=== PATIENT | female | born 1955 | race Hispanic/Latino ===

== ENCOUNTER 2018-03-02 06:36 | Emergency (ER) | payer OTHER ==
[2018-03-02 08:11] LABS: #Basophils 0.1 thou/uL (0.0-0.2); #Eosinphils 0.1 thou/uL (0.0-0.7); #Lymphocytes 4.4 thou/uL (1.20-3.40); #Monocytes 0.7 thou/uL (0.11-0.59); #Neutrophils 9.2 thou/uL (1.40-6.50); %Basophils 0.6 % (0.0-1.0); %Eosinophils 0.4 % (0.0-10.0); %Lymphocytes 30.4 % (21.0-51.0); %Monocytes 5.1 % (0.0-10.0); %Neutrophils 63.5 % (42.0-75.0); Hemoglobin 14.1 g/dL (12.0-16.0); Mean Corpuscular HGB CONC 33.6 g/dL (32.0-36.0); Mean Corpuscular Volume 89.4 fL (78.0-98.0); Mean Platelet Volume 6.2 fL (7.4-10.4); Platelet Count 454 thou/uL (130-400); RBC Distribution Width 11.9 % (11.5-14.5); Red Blood Cell (RBC) Count 4.69 mill/uL (4.20-5.40); White Blood Cell (WBC) Count 14.5 thou/uL (4.8-10.8)
[2018-03-02 08:41] LABS: Bilirubin Negative (Negative); Blood, Urine Negative (Negative); Clarity CLOUDY (Clear); Glucose, Urine (Dipstick) Negative (Negative); Leukocyte Small (Negative); Nitrite Positive (Negative); Protein, Urine (Dipstick) Negative (Neg-Trace); Specific Gravity, Urine 1.019 (1.002-1.036)
[2018-03-02 08:44] LABS: Bacteria/HPF 4+ HPF (None Seen); Hyaline Casts/LPF 0-3 HYALINE CAST LPF (0-3 Hyaline); Pathc Cast-AUWi Flag 0.29 (0-2.49); RBC/HPF 0-3 HPF (0-3)
[2018-03-02 08:48] LABS: ALT (SGPT) 40 U/L (8-55); AST (SGOT) 16 U/L (5-34); Albumin 4.5 g/dL (3.4-4.8); Alkaline Phosphatase 69 U/L (40-150); Anion Gap 13 mmol/L (10-20); BUN (Urea Nitrogen) 14 mg/dL (9.8-20.1); Bilirubin, Total 0.7 mg/dL (0.2-1.2); Calc. Creatinine Clearance 0 mL/min (70-130); Calcium 9.4 mg/dL (7.8-10.44); Carbon Dioxide 26 mmol/L (23-31); Chloride 100 mmol/L (98-107); Estimated GFR-MDRD 77; Glucose 130 mg/dL (80-115); Magnesium 2.1 mg/dL (1.6-2.6); Protein, Total 7.5 g/dL (6.0-8.3); Sodium 135 mmol/L (136-145)
[2018-03-02 08:53] LABS: Troponin I Less than 0.010 ng/mL (< 0.028)
--- NOTE | 2018-03-02 09:54 | RAD ---
RADIOGRAPH CHEST 2 VIEWS: HISTORY: A 62-year-old female with chills and syncope. FINDINGS: There is no air space density, pulmonary edema, pleural effusion, pneumothorax, or cardiomegaly. IMPRESSION: No acute cardiopulmonary findings. lavell [] POS: KATELYN
[2018-03-02] MEDS ORDERED: cefTRIAXone\\ROCEPHIN 1 GM VIAL ONE (10:01)
== END 2018-03-02 11:09 | disposition home or self-care (01) ==
LOC: ERS 06:36
DX: E86.0 Dehydration (principal); N39.0 Urinary tract infection, site not specified; E10.9 Type 1 diabetes mellitus without complications; I10 Essential (primary) hypertension; Z79.84 Long term (current) use of oral hypoglycemic drugs; Z79.899 Other long term (current) drug therapy
CPT/HCPCS: 36416; 71046; 80053; 81003; 81015; 83735; 83880; 84484; 85025; 87077; 87086; 87186; 93005; 96365; J0696

== ENCOUNTER 2018-05-22 10:12 | Inpatient (IN) | payer OTHER ==
[2018-05-22 11:45] LABS: #Basophils 0.1 thou/uL (0.0-0.2); #Eosinphils 0.1 thou/uL (0.0-0.7); #Monocytes 0.4 thou/uL (0.11-0.59); #Neutrophils 3.4 thou/uL (1.40-6.50); %Basophils 1.1 % (0.0-1.0); %Eosinophils 1.8 % (0.0-10.0); %Lymphocytes 42.8 % (21.0-51.0); %Monocytes 5.9 % (0.0-10.0); %Neutrophils 48.4 % (42.0-75.0); Hemoglobin 13.9 g/dL (12.0-16.0); Mean Corpuscular HGB CONC 31.9 g/dL (32.0-36.0); Mean Corpuscular Hemoglobin 29.1 pg (27.0-31.0); Mean Corpuscular Volume 91.3 fL (78.0-98.0); Mean Platelet Volume 7.1 fL (7.4-10.4); Platelet Count 402 thou/uL (130-400); RBC Distribution Width 12.6 % (11.5-14.5); Red Blood Cell (RBC) Count 4.76 mill/uL (4.20-5.40)
[2018-05-22 11:55] LABS: Bilirubin Negative (Negative); Blood, Urine Negative (Negative); Clarity CLEAR (Clear); Glucose, Urine (Dipstick) Negative (Negative); Leukocyte Trace (Negative); Nitrite Positive (Negative); Protein, Urine (Dipstick) Negative (Neg-Trace); Specific Gravity, Urine 1.006 (1.002-1.036); Urobilinogen 0.2 mg/dL (0.2-1.0); pH, Urine 6.5 (5.0-9.0)
[2018-05-22 11:57] LABS: Bacteria/HPF 4+ HPF (None Seen); Hyaline Casts/LPF 0-3 HYALINE CAST LPF (0-3 Hyaline); RBC/HPF 0-3 HPF (0-3); Squamous Epithelial None Seen HPF (0-3); WBC/HPF 0-3 HPF (0-3)
[2018-05-22 12:06] LABS: ALT (SGPT) 29 U/L (8-55); AST (SGOT) 20 U/L (5-34); Albumin 4.5 g/dL (3.4-4.8); Alkaline Phosphatase 63 U/L (40-150); Anion Gap 12 mmol/L (10-20); BUN (Urea Nitrogen) 10 mg/dL (9.8-20.1); Bilirubin, Total 0.9 mg/dL (0.2-1.2); Calc. Creatinine Clearance 0 mL/min (70-130); Calcium 9.3 mg/dL (7.8-10.44); Carbon Dioxide 28 mmol/L (23-31); Chloride 104 mmol/L (98-107); Estimated GFR-MDRD 83; Glucose 137 mg/dL (80-115); Lipase 11 U/L (8-78); Potassium 4.3 mmol/L (3.5-5.1); Protein, Total 7.5 g/dL (6.0-8.3); Sodium 140 mmol/L (136-145)
--- NOTE | 2018-05-22 13:29 | ULT ---
GALLBLADDER ULTRASOUND: HISTORY: Right upper quadrant pain. COMPARISON: 12/15/2015 TECHNIQUE: Utilizing a Multi-Hertz transducer, sonographic imaging of the right upper quadrant was performed in the longitudinal and transverse planes. FINDINGS: Increased echogenicity of the liver is presumed to be due to hepatic steatosis or hepatocellular dise ase. Subsequently, limited evaluation for hepatic masses and intrahepatic biliary dilatation. The senior training specialist reports possible sludge and a noncalcifying sludge ball versus cholelithiasis in the lumen of the gallbladder, best appreciated on the left lateral decubitus images. Gallbladder wall th ickness is at the upper limits of normal. No pericholecystic fluid. However, the senior training specialist report s a positive Mahoney sign. Limited evaluation of the pancreas. Common bile duct diameter is 0.3 cm. The right kidney has a normal cortical echotexture. No hydronephrosis. The right kidney measures 4. 8 x 5.6 x 10 cm. IMPRESSION: Sonographic evidence of possible cholecystitis. There does appear to be a nonshadowing echogenic foc us in the lumen of the gallbladder, which may represent a nonshadowing stone versus sludge ball. Gal lbladder wall thickness is at the upper limits of normal. The senior training specialist reports a positive Mahoney sign. Further evaluation with HIDA scan is recommended. POS: KATELYN
--- NOTE | 2018-05-22 15:27 | PDOC.FPRHP ---
- History of Present Illness Chief Complaint: RUQ pain History of Present Illness: 62 yo F with DM1 and HTN presents for 2 wks of RUQ abdominal pain which acutely worsened on Monday. She was sent to ED from her clinic appointment with her PCP today. Pain is sharp 7/10, constant, radiates around right side. Pain is worsened with eating, especially milk. She hasn't eaten anything since yesterday morning. Associated with bloating, diarrhea, nausea. Patient has chills but no fever. In the ED, RUQ US showed gall bladder wall thickening, sludge ball vs cholelithiasis, and +Mahoney sign. ED Course: RUQ US, possible cholecystitis with sludge No medications - Allergies/Adverse Reactions Allergies Allergy/AdvReac Type Severity Reaction Status Date / Time codeine phosphate Allergy Rash Verified 05/22/18 16:56 [From Tylenol-Codeine] - Home Medications Medication Instructions Recorded Confirmed Type Cyclobenzaprine [Flexeril] 10 mg PO HS 12/15/15 05/22/18 History Esomeprazole Magnesium [NexIUM] 40 mg PO DAILY 12/15/15 05/22/18 History Lisinopril [Zestril] 40 mg PO DAILY 12/15/15 05/22/18 History metFORMIN HCl 1,000 mg PO BID-WM 12/15/15 05/22/18 History Aspirin [Aspir-Low] 81 mg PO DAILY 05/22/18 05/22/18 History Cholecalciferol (Vitamin D3) 1,000 unit PO DAILY 05/22/18 05/22/18 History [Vitamin D3] Atorvastatin Calcium [Lipitor] 20 mg PO HS #14 tab 05/23/18 Rx Gabapentin [Neurontin] 300 mg PO BID 05/23/18 05/23/18 History Ibuprofen [Motrin] 800 mg PO Q8H #21 tab 05/23/18 Rx Insulin Glargine [Lantus Vial] 10 units SC HS #0 vial 05/23/18 Rx Insulin Glargine [Lantus Vial] 10 units SC QAM #0 vial 05/23/18 Rx traMADol HCl [Tramadol HCl] 1 - 2 tab PO Q6HR PRN #30 tablet 05/23/18 Rx - History PMHx: HTN, DM1 PSHx: umbical hernia, appendectomy, c/sx2 FHx: non-contributory Social: no smoking, alcohol, or drugs - Review of Systems General: reports: fever/chills (No fever, +chills), weight/appetite/sleep changes (decreased appetite), night sweats, fatigue Eyes: denies: eye pain, vision changes ENT: denies: nasal congestion, rhinorrhea Respiratory: denies: cough, congestion, shortness of breath Cardiovascular: denies: chest pain, palpitation Gastrointestinal: reports: nausea, diarrhea, abdominal pain. denies: vomiting, constipation, GI bleeding Genitourinary: denies: incontinence, dysuria Skin: denies: rashes, jaundice Musculoskeletal: denies: pain Neurological: denies: numbness, weakness Psychological: denies: anxiety, depression - Vital signs BP: 113/68 HR: 53 RR: 18 Tmax: 97.8 Pox: 97% on RA Wt: 86.19kg - Physical Exam Constitutional: NAD, awake, alert and oriented HEENT: normocephalic and atraumatic, PERRLA, EOMI, conjunctiva clear, grossly normal hearing, MMM, oropharynx clear Neck: supple -Neck: +LAD Heart: RRR, normal S1/S2, no murmurs/rubs/gallops, no edema Lungs: CTAB, no respiratory distress, good air movement, no wheezing Abdomen: soft, bowel sounds present -Abdomen: TTP on RUQ and LLQ. Some guarding present, no rebound. + Mahoney sign Skin: no rash/lesions Heme/Lymphatic: no unusual bruising or bleeding Psychiatric: normal mood and affect, good judgment and insight, intact recent and remote memory FMR H&P: Results - Labs Result Diagrams: 05/23/18 04:31 05/23/18 04:31 Lab results: WBC 7.0 thou/uL (4.8-10.8) 05/22/18 11:32 Hgb 13.9 g/dL (12.0-16.0) 05/22/18 11:32 Hct 43.5 % (36.0-47.0) 05/22/18 11:32 MCV 91.3 fL (78.0-98.0) 05/22/18 11:32 Plt Count 402 thou/uL (130-400) H 05/22/18 11:32 Neutrophils % 48.4 % (42.0-75.0) 05/22/18 11:32 Sodium 140 mmol/L (136-145) 05/22/18 11:32 Potassium 4.3 mmol/L (3.5-5.1) 05/22/18 11:32 Chloride 104 mmol/L (98-107) 05/22/18 11:32 Carbon Dioxide 28 mmol/L (23-31) 05/22/18 11:32 BUN 10 mg/dL (9.8-20.1) 05/22/18 11:32 Creatinine 0.71 mg/dL (0.6-1.1) 05/22/18 11:32 Glucose 137 mg/dL (80-115) H 05/22/18 11:32 Calcium 9.3 mg/dL (7.8-10.44) 05/22/18 11:32 Total Bilirubin 0.9 mg/dL (0.2-1.2) 05/22/18 11:32 AST 20 U/L (5-34) 05/22/18 11:32 ALT 29 U/L (8-55) 05/22/18 11:32 Alkaline Phosphatase 63 U/L (40-150) 05/22/18 11:32 Serum Total Protein 7.5 g/dL (6.0-8.3) 05/22/18 11:32 Albumin 4.5 g/dL (3.4-4.8) 05/22/18 11:32 Lipase 11 U/L (8-78) 05/22/18 11:32 Urine Ketones Negative mg/dL (Negative) 05/22/18 11:36 Urine Blood Negative (Negative) 05/22/18 11:36 Urine Nitrite Positive (Negative) H 05/22/18 11:36 Ur Leukocyte Esterase Trace (Negative) H 05/22/18 11:36 Urine RBC 0-3 HPF (0-3) 05/22/18 11:36 Urine WBC 0-3 HPF (0-3) 05/22/18 11:36 Ur Squamous Epith Cells None Seen HPF (0-3) 05/22/18 11:36 Urine Bacteria 4+ HPF (None Seen) H 05/22/18 11:36 FMR H&P: A/P - Problem List (1) RUQ pain Status: Acute Code(s): R10.11 - RIGHT UPPER QUADRANT PAIN (2) Diabetes mellitus type II, uncontrolled Status: Chronic Code(s): E11.65 - TYPE 2 DIABETES MELLITUS WITH HYPERGLYCEMIA (3) GERD (gastroesophageal reflux disease) Status: Chronic Code(s): K21.9 - GASTRO-ESOPHAGEAL REFLUX DISEASE WITHOUT ESOPHAGITIS (4) Hypertension Status: Chronic Code(s): I10 - ESSENTIAL (PRIMARY) HYPERTENSION Qualifiers: Hypertension type: essential hypertension Qualified Code(s): I10 - Essential (primary) hypertension - Plan 62 yo F with PMH of DM and HTN presents with possible cholecystitis. #Concern for cholecystitis - RUQ pain, +[place]. Lipase WNL, WBC wnl, afebrile. VSS. - RUQ US showed gallbladder wall thickening at limit of normal, sludge ball vs cholelithiasis - Pain control with morphine IV - Zofran for nausea - CXR and EKG for possible surgery - NPO for possible surgery - Consult Dr. Fu, General Surgery, appreciate recommendations - IV LR @ 125 #DM -Start home metformin -Start home lantus 10 units BID -Mod SSI #GERD -continue #HTN -continue home lisinopril and ASA #Neuropathic pain -continue home gabapentin #HLD -Home dose atorvastatin unknown -start Atorvastatin 20 mg GI ppx: famotidine DVT ppx: lovenox Code status: full FMR H&P: Upper Level - Pertinent history 62 yo F w/ PMH including DM2, HTN, and HLD w/ RUQ pain going on for 2 weeks, worse the last 5 days. Sharp RUQ pain worse with eating, pain radiates to the back. Nothing seems to make it better. Never had anything like this in the past. She has not tried any medicine but she has not had anything to eat since yesterday morning because eating hurts. No fevers. Has had chills and sweats. Had had nausea, diarrhea x5 yesterday. No blood in the stools. - Pertinent findings General - NAD Eyes - PERRLA, EOM intact ENT - Moist oral mucosa, pale Cardiovascular - RRR no m/r/g Lungs - Clear to auscltation, no use of acessory muscles, no crackles or wheezes. Skin - No rashes, skin warm and dry, no erythematous areas Abdomen - Normal bowel sounds, abdomen soft, mahoney +, no rebound or guarding Extremeties - No edema, cyanosis or clubbing Musculo Skeletal - 5/5 strength, normal range of motion Neurological Alert and oriented x 3, CN 2-12 grossly intact. - Plan Date/Time: 05/22/18 1527 I, Johnathon Bennett MD, have evaluated this patient and agree with findings/plan as outlined by sports internship resident. Pertinent changes/additions are listed here. # Suspected Acalculous cholecystitis - RUQ US shows sludge, gall bladder wall thickening - normal WBC, afebrile, transaminases WNL - Mahoney's positive, NPO 2/2 pain worse with food - consulted Dr. Fu, appreciate recs, anticipate cholecystecomty # DM2 - lantus 10U qhs per clinic note - metformin 1000mg BID - SSI # HTN - home meds # HLD - home atorvastatin Fluids: LR 125 ml/hr Diet: NPO PPx: lovenox starting tomorrow AM, Pepcid, SCDs Dispo: 1-2 days Attending Addendum - Attending Addendum Date/Time: 05/24/18 1530 I personally evaluated the patient and discussed the management with Dr. Bennett on 05/22/18. I agree with the History, Examination, Assessment and Plan documented above with any addition or exceptions noted below. 62 y.o. LAF with h/o DM2, HTN with 1 week of worsening epigastric and RUQ pain that acutely worsened overnight. Associated with meals. +nausea, radiation to back. GBUS c/w cholecystitis/cholelithiasis PE: +Mahoney's. Labs without evidence of pancreatitis. General Surgery consult. Treat for acute cholecystitis.
[2018-05-22] MEDS ORDERED: Gabapentin 300 MG CAP PO PRN (16:16)
[2018-05-22] MEDS ORDERED: Ondansetron HCl/PF 4 MG/2 ML Vial ONE (16:28)
[2018-05-22] MEDS ORDERED: ePHEDrine/0.9% NaCl/PF SYRINGE 50 mg/10 ml ONE (16:28)
[2018-05-22] MEDS ORDERED: Ketorolac Tromethamine 30 MG/ML VIAL ONE (16:28)
[2018-05-22] MEDS ORDERED: Lidocaine 1% PF 5 ML VIAL ONE (16:28)
[2018-05-22] MEDS ORDERED: PROPOFOL 200 MG/20 ML VIAL ONE (16:28)
[2018-05-22] MEDS ORDERED: Glycopyrrolate 0.2 MG/ML 5 ML SYRINGE ONE (16:28)
[2018-05-22] MEDS ORDERED: Dexamethasone 20 MG/5 ML VIAL ONE (16:28)
--- NOTE | 2018-05-22 16:35 | RAD ---
FRONTAL VIEW CHEST: Indication: Pre-operative evaluation. FINDINGS: Lungs are clear. There is no air beneath the hemidiaphragms. Cardiac silhouette is accentuated with p ortable technique. Mild degenrative change is seen at the AC joints. IMPRESSION: No focal consolidation. POS: H
[2018-05-22] MEDS ORDERED: Bupivacaine/Epinephrine 0.25% 30 ML VIAL ONE (16:44)
[2018-05-22] MEDS ORDERED: HYDROmorphone 2 MG/ML VIAL ONE (16:57)
[2018-05-22] MEDS ORDERED: Fentanyl 100 MCG/2 ML VIAL ONE ×2 (16:57→19:37)
[2018-05-22] MEDS ORDERED: CEFAZOLIN/Water 2 GM/20 ML SYRINGE ONE (17:34)
[2018-05-22] MEDS ORDERED: CEFAZOLIN 1 GM VIAL ONE (17:34)
[2018-05-22] MEDS ORDERED: traMADol HCl 50 MG TAB PO PRN ×2 (19:03)
[2018-05-22] MEDS ORDERED: Ondansetron HCl/PF 4 MG/2 ML Vial IVP PRN ×2 (19:06→20:12)
[2018-05-22] MEDS ORDERED: Promethazine HCl 25 MG/ML VIAL ONE (19:10)
[2018-05-22] MEDS ORDERED: Dextrose 5% in Water 1,000 ML IV PRN (20:12)
[2018-05-22] MEDS ORDERED: Dextrose 50% Abboject 50 ML SYRINGE SLOW IVP PRN (20:12)
[2018-05-22] MEDS: metFORMIN 500 MG TAB PO SCH (20:30)
[2018-05-22] MEDS ORDERED: Insulin Glargine 10 UNITS in Pre-Filled Syringe 1 EACH SC SCH (21:00)
[2018-05-22] MEDS ORDERED: Atorvastatin Calcium 20 MG TAB PO SCH (21:00)
--- NOTE | 2018-05-22 21:41 | CON ---
DATE OF CONSULTATION: 05/22/2018 HISTORY OF PRESENT ILLNESS: Ms. Zuniga is a 62-year-old morbidly obese woman who presente d to the Emergency Department today complaining of 2-week history of right upper quadrant postprandia l abdominal pain. The pain is described as sharp, without radiation. Pain is exacerbated by eating and has become progressively worse over the last 4 days. She has been anorexic for fear of exacerbating the abdominal pain. The pain currently is associated with multiple episodes of nausea, but no emesis. She reports some diarrhea and abdominal bloating, b ut no frequent flatulence. She admits to some chills, but no fevers. PAST MEDICAL HISTORY: Pertinent for essential hypertension, morbid obesity, type 2 diabetes mellitus , and gastroesophageal reflux disease. PAST SURGICAL HISTORY: She reports 2 previous C-sections and umbilical herniorrhaphy as well as appe ndectomy. SOCIAL HISTORY: She is a . She denies any cigarette smoking, ethanol or illicit drug abuse. FAMILY HISTORY: She denies any family history of diabetes mellitus, hypertension, heart disease. Fa rosenda from complications of tobacco related lung disease. PREHOSPITALIZATION MEDICATIONS: Lisinopril 40 mg p.o. daily, aspirin 81 mg p.o. daily, metformin 100 0 mg p.o. b.i.d., Nexium 40 mg p.o. daily, Humulin 70/30, she takes 60 units once q.a.m. and vitamin D3 one p.o. daily. ALLERGIES: Tylenol #3 which gives her hives. REVIEW OF SYSTEMS: A 10-point review of system is essentially unremarkable except for as stated in p ast medical history and chief complaint. PHYSICAL EXAMINATION: GENERAL: This reveals a 62-year-old obese woman who is otherwise coherent and interactive and appear s stated age. The patient is alert and oriented x3. She appears to be in moderate acute distress se condary to right upper quadrant abdominal pain. VITAL SIGNS: Currently includes blood pressure 118/75, pulse is 56, respiratory rate is 16, temperat ure is 98.3 degrees Fahrenheit. Oxygen saturation is 97% on room air. HEENT: Reveals normocephalic and atraumatic. Pupils are equal, round, and reactive to light and acc ommodation. Extraocular muscles are intact bilaterally. She has no sclerae icterus present. Oral m ucosa is pink and moist. No lesions are noted. NECK: Supple. No palpable lymphadenopathy or thyromegaly present. CARDIOVASCULAR: Reveals regular rate and rhythm, no murmurs or gallops auscultated. LUNGS: Clear to auscultation bilaterally. Her breathing is regular and unlabored. ABDOMEN: Soft and obese with right upper quadrant tenderness to palpation. She has a positive [place] y sign. Liver and spleen otherwise nonpalpable below costal margin. EXTREMITIES: Reveals 2+ radial and pedal pulses bilaterally. No ankle edema is present. NEUROLOGIC: Reveals no focal deficits present. PERTINENT LABORATORY DATA: Today includes a CBC with 7000 white blood cells, hemoglobin 13.9, hemato crit is 43.5, platelet count is 402,000. Metabolic profile: Sodium 140, potassium 4.3, chloride is 104, bicarbonate is 28, BUN 10, creatinine 0.71, glucose 137, total bilirubin is 0.9, AST and ALT nor mal at 20 and 29 respectively. Alkaline phosphatase is also normal at 63. Serum lipase is normal at 11. I personally reviewed the abdominal ultrasound, which is pertinent for gallbladder wall upper l imits of normal in thickness. There is no pericholecystic fluid. I did not see any acoustic shadowi ng to suggest stones. Common bile duct is normal for this patient's age at 4.6 mm in diameter. IMPRESSION: 1. Acute on chronic cholecystitis, likely acalculous. 2. History of type 2 diabetes mellitus. PLAN: Given this patient experienced similar symptoms 2 years previously and now with ongoing sympto ms over the last 2 weeks in the presence of longstanding diabetes mellitus, plan at this time is to p vidhi with a laparoscopic cholecystectomy. The above findings and recommendation has been discussed with the patient. I have advised the patient of the risk and benefits of the proposed surgery to in clude, but not limited to bleeding, infection, injury to bile duct or surrounding structures. This i nformation was given to the patient in the presence of her nurse. She indicates understanding of inf ormation given. I have answered her questions. Thank you again, Dr. Smith for allowing me the opportunity to participate in the care of this patien t.
[2018-05-22] MEDS: Famotidine/PF 20 mg/2ml Vial SLOW IVP SCH (21:51)
[2018-05-22] MEDS: Lactated Ringer's 1,000 ML IV SCH (21:52)
[2018-05-22 22:11] VITALS: BMI 35.9
--- NOTE | 2018-05-23 | OP ---
DATE OF OPERATION: 05/22/2018 PREOPERATIVE DIAGNOSES: Acute cholecystitis with cholelithiasis. POSTOPERATIVE DIAGNOSES: Acute cholecystitis with cholelithiasis. PROCEDURES PERFORMED: Laparoscopic cholecystectomy. SURGEON: Pio Fu D.O. ANESTHESIA: General endotracheal. ESTIMATED BLOOD LOSS: 5 mL. FLUIDS GIVEN: 1200 mL crystalloids. SPONGE AND INSTRUMENT COUNT: Certified as correct x2. COMPLICATIONS: None apparent at the time of operation. INDICATIONS FOR OPERATION: A 62-year-old obese woman presented with recurrent right upper quadrant a bdominal pain. Clinical and radiographic examination was consistent with acute cholecystitis with ch olelithiasis for which the patient was brought to the operating room for laparoscopic cholecystectomy . Findings are consistent with gallbladder in the usual anatomic location completely encased by omen fredy adhesions. DESCRIPTION OF OPERATION: Informed consent obtained from the patient who was brought to the operatin g room and placed in supine position. Following general anesthesia, abdomen is sterilely prepped and draped in usual fashion. The skin below the umbilicus was infiltrated with 0.25% Marcaine with epin ephrine. A small curvilinear infraumbilical incision is made using an 11 scalpel. Umbilical stalk w as grasped with Obinna's and elevated. Veress needle was inserted through the incision and placed in the peritoneal cavity through which the abdomen was insufflated with 3 liters of CO2 gas. Intraabdo buddy pressure was noted at 1 mmHg. Following the abdominal insufflation, Veress needle was removed and replaced with a 5 mm trocar introduced using the Visiport under laparoscopy. Laparoscopy confirm ed proper placement of the port, no injuries to underlying structures. Additional laparoscopy reveal s gallbladder in the usual anatomic location completely encased by omental adhesions. Under direct l aparoscopy, a 12 mm epigastric and two 5 mm right lateral subcostal ports were placed after the overl louisa skin was infiltrated with 0.25% Marcaine with epinephrine and appropriate incisions made. The p atient was placed in the reverse Trendelenburg position, rotated to her left. I introduced [place] dissector with cautery, using this to take down omental adhesions to expose the fundus of the gallbla dder, which was grasped with a Prestige grasper through the right lateral subcostal port. The fundus of the gallbladder was elevated cephalad. Omental adhesions were then completely taken down from th e remainder of the gallbladder with good hemostasis. A second Prestige grasper was applied at the Beckwith rtman's pouch which was retracted laterally. An anterior coursing cystic artery was dissected free f rom surrounding structures and divided between clips. Two clips were applied proximally and one clip at the junction of the cystic artery and gallbladder. Cystic duct was dissected free from surroundi ng structures and divided between clips in a similar fashion. The gallbladder surface removed from t he liver bed using cautery with good hemostasis. Gallbladder is delivered of the abdominal cavity us ing an EndoCatch. Operative site was inspected for good hemostasis. No bile stains present. All cl ips remain in place. Finding no other pathology, laparoscopy was terminated. Fascia of the epigastr ic port was closed using 0 Vicryl suture and Endo closure device under laparoscopy. Abdomen was desu fflated. All ports and instruments removed and accounted for. Skin incisions were closed using 4-0 Monocryl suture in subcuticular fashion. Dermabond was applied over the incisional closure. The pat ient tolerated the operation without any apparent complication and was returned to recovery room in a satisfactory condition.
[2018-05-23] MEDS: Lactated Ringer's 1,000 ML IV SCH ×2 (00:18→08:40)
[2018-05-23] MEDS: Acetaminophen 500 MG TAB PO SCH ×3 (00:18→11:37)
[2018-05-23] MEDS: Ketorolac Tromethamine 30 MG/ML VIAL IVP SCH ×2 (00:19→05:33)
[2018-05-23 04:59] LABS: #Lymphocytes 1.4 thou/uL (1.20-3.40); #Monocytes 0.2 thou/uL (0.11-0.59); #Neutrophils 7.7 thou/uL (1.40-6.50); %Basophils 0.1 % (0.0-1.0); %Eosinophils 0.1 % (0.0-10.0); %Lymphocytes 15.2 % (21.0-51.0); %Monocytes 1.7 % (0.0-10.0); %Neutrophils 82.9 % (42.0-75.0); Hemoglobin 13.1 g/dL (12.0-16.0); Mean Corpuscular HGB CONC 31.9 g/dL (32.0-36.0); Mean Corpuscular Hemoglobin 28.9 pg (27.0-31.0); Mean Corpuscular Volume 90.8 fL (78.0-98.0); Platelet Count 384 thou/uL (130-400); RBC Distribution Width 12.7 % (11.5-14.5); Red Blood Cell (RBC) Count 4.51 mill/uL (4.20-5.40); White Blood Cell (WBC) Count 9.3 thou/uL (4.8-10.8)
[2018-05-23 05:07] LABS: ALT (SGPT) 31 U/L (8-55); AST (SGOT) 25 U/L (5-34); Albumin 3.9 g/dL (3.4-4.8); Alkaline Phosphatase 56 U/L (40-150); Anion Gap 13 mmol/L (10-20); BUN (Urea Nitrogen) 9 mg/dL (9.8-20.1); Bilirubin, Total 0.7 mg/dL (0.2-1.2); Calc. Creatinine Clearance 94 mL/min (70-130); Calcium 8.8 mg/dL (7.8-10.44); Carbon Dioxide 23 mmol/L (23-31); Chloride 104 mmol/L (98-107); Estimated GFR-MDRD 69; Globulin 2.6 g/dL (2.4-3.5); Glucose 305 mg/dL (80-115); Potassium 4.3 mmol/L (3.5-5.1); Protein, Total 6.5 g/dL (6.0-8.3); Sodium 136 mmol/L (136-145)
[2018-05-23 05:08] LABS: ALT (SGPT) 30 U/L (8-55); AST (SGOT) 24 U/L (5-34); Albumin 3.9 g/dL (3.4-4.8); Alkaline Phosphatase 55 U/L (40-150); Bilirubin, Direct 0.2 mg/dL (0.1-0.3); Bilirubin, Total 0.7 mg/dL (0.2-1.2); Protein, Total 6.5 g/dL (6.0-8.3)
[2018-05-23] MEDS: HumaLOG 300 UNITS/3 ML VIAL SC PRN ×2 (05:58→11:37)
--- NOTE | 2018-05-23 06:03 | PDOC.FM ---
- Subjective Subjective: Pt feeling well this AM, ate crackers and jello last night, ordering breakfast this morning. Voiding well, no flatus yet. Pain is well controlled. - Objective Vital Signs & Weight: Vital Signs (12 hours) Temp Pulse Resp BP Pulse Ox 05/23/18 04:00 98 F 86 18 102/73 94 L 05/23/18 00:00 98.3 F 88 16 124/86 90 L 05/22/18 20:35 97 05/22/18 19:55 98.4 F 57 L 20 123/52 L 97 Weight Weight 86.183 kg Result Diagrams: 05/23/18 04:31 05/23/18 04:31 Phys Exam - Physical Examination Constitutional: NAD Neck: no nodes, supple Respiratory: no wheezing, no rales, no rhonchi, clear to auscultation bilateral Cardiovascular: RRR, no significant murmur Gastrointestinal: soft, non-tender, positive bowel sounds Incision sites clean and dry, no erythema Musculoskeletal: no edema, pulses present Neurological: moves all 4 limbs Psychiatric: normal affect, A&O x 3 Dx/Plan (1) RUQ pain Code(s): R10.11 - RIGHT UPPER QUADRANT PAIN Status: Acute (2) Diabetes mellitus type II, uncontrolled Code(s): E11.65 - TYPE 2 DIABETES MELLITUS WITH HYPERGLYCEMIA Status: Chronic (3) GERD (gastroesophageal reflux disease) Code(s): K21.9 - GASTRO-ESOPHAGEAL REFLUX DISEASE WITHOUT ESOPHAGITIS Status: Chronic (4) Hypertension Code(s): I10 - ESSENTIAL (PRIMARY) HYPERTENSION Status: Chronic Qualifiers: Hypertension type: essential hypertension Qualified Code(s): I10 - Essential (primary) hypertension - Plan Plan: 62 yo F with PMH of DM and HTN presents with possible cholecystitis. #Acute Cholecystitis with cholilithiasis 2/p lap gabriel POD#1 - RUQ pain, +[place]. Lipase WNL, WBC wnl, afebrile. VSS. - RUQ US showed gallbladder wall thickening at limit of normal, sludge ball vs cholelithiasis - Lap gabriel 110/ by Dr. Fu, appreciate recommendations - Pain well controlled, ketorolac and tramadol - Diet- CC, HH - Discontinue IV fluids #DM -Continue home metformin -Continue home lantus 10 units BID -Mod SSI #GERD -continue home medications #HTN -continue home lisinopril and ASA #Neuropathic pain -continue home gabapentin #HLD -Home dose atorvastatin unknown -started Atorvastatin 20 mg #Asx UTI -Patient is asymptomatic, no tx necessary GI ppx: famotidine DVT ppx: lovenox Code status: full Dispo: Home today pending clinical picture
[2018-05-23] MEDS: metFORMIN 500 MG TAB PO SCH (08:39)
[2018-05-23] MEDS: Famotidine/PF 20 mg/2ml Vial SLOW IVP SCH (08:39)
[2018-05-23] MEDS ORDERED: Ibuprofen 800 MG TAB PO SCH (08:45)
[2018-05-23] MEDS ORDERED: Enoxaparin Sodium 40 MG/0.4 ML SYRINGE SC SCH (09:00)
[2018-05-23] MEDS ORDERED: Lisinopril 20 MG TAB PO SCH (09:00)
[2018-05-23] MEDS ORDERED: Insulin Glargine 10 UNITS in Pre-Filled Syringe 1 EACH SC SCH (09:00)
--- NOTE | 2018-05-23 12:29 | PRG ---
DATE OF SERVICE: 05/23/2018 This is an addendum to the note of Dr. Kamila Bennett. Ms. Zuniga came in yesterday with acute cholecystitis. She underwent laparoscopic cholecystectomy per the Surgery Service and she is now postop day #1. She is feeling much better. Her vital signs a re stable and she is afebrile. We will advance diet and discuss her discharge plans with Surgery.
--- NOTE | 2018-05-23 12:52 | PRG ---
DATE OF SERVICE: 05/23/2018 Ms. Zuniga is a 62-year-old woman who is now postop day #1 status post laparoscopic cholec ystectomy. This morning, she reports adequate pain control. She tolerates general diet. She is pas sing flatus and her urinary output is adequate. PHYSICAL EXAMINATION: VITAL SIGNS: Today includes blood pressure 108/73, pulse 68, respiratory rate is 16, temperature 97. 3 degrees Fahrenheit, oxygen saturation 95% on room air. ABDOMEN: Soft, nondistended. All 4 incisions are intact, clean, and dry. She has no peritoneal sig ns on examination. Bowel sounds active in all 4 quadrants. LABORATORY DATA: Today includes a CBC with 9300 white blood cells, hemoglobin and hematocrit remaine d stable at 13.1 and 40.9 respectively. Platelet count is 384,000. Metabolic profile: Sodium is 13 6, potassium is 4.3, chloride is 104, bicarbonate is 23, BUN is 9, creatinine 0.84, glucose is 305. Total bilirubin remains normal at 0.7, AST and ALT remained normal at 25 and 31 respectively. Alkali ne phosphatase is also normal at 56. ASSESSMENT AND PLAN: Postop day #1, status post uneventful laparoscopic cholecystectomy. The patien t is definitely stable for discharge from a surgical standpoint. Discharge will be at the discretion of the primary service. She follows up with me in the Surgery Clinic in 2 weeks.
[2018-05-23 12:56] VITALS: BP 118/74; TEMP 98
--- NOTE | 2018-05-24 00:51 | DIS-2 ---
DATE OF ADMISSION: 05/22/2018 DATE OF DISCHARGE: 05/23/2018 RESIDENT: Kamila Bennett MD ADMITTING ATTENDING: Dr. Carpenter. DISCHARGE ATTENDING: Dr. Guerrero. CONSULT: Dr. Fu on 05/22/2018. PRIMARY DIAGNOSIS: Acute cholecystitis with cholelithiasis, status post laparoscopic cholecystectomy. SECONDARY DIAGNOSES: 1. Diabetes mellitus type 2. 2. Gastroesophageal reflux disease. 3. Hypertension. 4. Neuropathic pain. 5. Hyperlipidemia. 6. Asymptomatic urinary tract infection. DISCHARGE MEDICATIONS: 1. Atorvastatin 20 mg p.o. at bedtime 2. Ibuprofen 800 mg p.o. q.8 hours p.r.n. for pain. 3. Lantus 10 units subcutaneously b.i.d. 4. Tramadol 1-2 tabs p.o. q.6 hours p.r.n. for pain. 5. Esomeprazole 40 mg p.o. daily. 6. Metformin 1000 mg p.o. b.i.d. 7. Flexeril 10 mg p.o. at bedtime. DISCONTINUED MEDICATIONS: None. PROCEDURES: 1. Abdomen ultrasound on 05/22/2018, findings, increased echogenicity of the liver presumed to be hepatic steatosis or hepatocellular disease. Sonographic evidence of possible cholecystitis. There does appear to be a non-shadowing echogenic focus in the lumen of the gallbladder, which may represent a non- shadowing stone versus sludge gallbladder wall thickness is at the upper limits of normal. Positive Mahoney sign. 2. Chest x-ray on 05/22/2018, no focal consolidation. 3. 05/22/2018 Laparoscopic cholecystectomy. POSTOPERATIVE DIAGNOSIS: Acute cholecystitis with cholelithiasis. HISTORY OF PRESENT ILLNESS AND HOSPITAL COURSE: A 62-year-old female with a past medical history of type 2 diabetes, hypertension who presented for 2 weeks of right upper quadrant abdominal pain, which acutely worsened last Monday. She was sent to the ED from her clinic appointment with her PCP today. She reported the pain is 7/10, constant, radiating around her right side. Pain is worsened with meals. The patient has not eaten since yesterday morning. She associates her symptoms with bloating, diarrhea, and nausea. The patient has chills, but no fever. Her right upper quadrant ultrasound showed gallbladder wall thickening, sludge ball vs cholelithiasis and a positive Mahoney's sign. Dr. Fu was consulted and performed a laparoscopic cholecystectomy. The patient tolerated the procedure well. She was eating and drinking, voiding after the surgery. The patient was able to ambulate. Her pain is well controlled. DISPOSITION: Stable. DISCHARGE INSTRUCTIONS: 1. Location: Home. 2. Diet: Diabetic diet, heart-healthy diet. 3. Activity: As tolerated. 4. Followup: Follow up with [facility] within 1 week, follow up with Dr. Fu, General Surgery on 06/05/2018. JAZMYNED
== END 2018-05-23 13:19 | disposition home or self-care (01) | DRG 418 ==
LOC: ERS 10:12 → SURG B 16:00
PROVIDERS: ADMIT Surgery; ATTEND Surgery
PROC: 0FT44ZZ Resection of Gallbladder, Percutaneous Endoscopic Approach (ICD-10-PCS; principal; 2018-05-22)
DX: K80.00 Calculus of gallbladder with acute cholecystitis without obstruction (principal); N39.0 Urinary tract infection, site not specified; E11.65 Type 2 diabetes mellitus with hyperglycemia; K21.9 Gastro-esophageal reflux disease without esophagitis; I10 Essential (primary) hypertension; E78.00 Pure hypercholesterolemia, unspecified; E11.40 Type 2 diabetes mellitus with diabetic neuropathy, unspecified
CPT/HCPCS: 36415; 36416; 71045; 76705; 80053; 81003; 81015; 83690; 85025; 88304; 90471; 90686; 93005; 96374; 96375; G0008; J0690; J1100; J1170; J1650; J1885; J2001; J2405; J2550; J2704; J3010; S0028

== ENCOUNTER 2020-08-19 07:43 | Outpatient (CLI) | payer OTHER ==
--- NOTE | 2020-08-19 12:47 | NM ---
NM Gastric Empty Scan W/Meal History: Gastroesophageal reflux disease Comparison: None. Findings: Abdominal imaging was performed after the oral administration 2 mCi technetium 99m sulfur c olloid in eggs. At 30 minutes there is 13% emptying. At 1 hour there has 30% emptying. At 2 hours there is 50% emptyi ng. At 3 arthrosis 58% emptying. At 4 hours there is 76% emptying. Impression: Delayed gastric emptying.
== END 2020-08-19 07:44 | disposition home or self-care (01) ==
LOC: NM 07:43
PROVIDERS: ATTEND Physician Assistant Medical
DX: K21.9 Gastro-esophageal reflux disease without esophagitis (principal); R14.0 Abdominal distension (gaseous); K22.70 Barrett's esophagus without dysplasia; K31.84 Gastroparesis
CPT/HCPCS: 78264; A9541

== ENCOUNTER 2021-02-22 18:11 | Emergency (ER) | payer MEDICARE, OTHER | END 2021-02-22 19:16 | disposition home or self-care (01) | LOC: ERS 18:11 | DX: L25.9 Unspecified contact dermatitis, unspecified cause (principal); E10.9 Type 1 diabetes mellitus without complications; I10 Essential (primary) hypertension; Z79.82 Long term (current) use of aspirin; Z79.4 Long term (current) use of insulin | CPT/HCPCS: 99282; J7512 ==

== ENCOUNTER 2021-03-24 13:08 | Outpatient (CLI) | payer MEDICARE, OTHER | END 2021-03-24 13:09 | disposition home or self-care (01) | LOC: BICMAMMO 13:08 | PROVIDERS: ATTEND Obstetrics & Gynecology | DX: Z13.820 Encounter for screening for osteoporosis (principal) | CPT/HCPCS: 77080 ==

== ENCOUNTER 2021-08-13 09:16 | Outpatient (CLI) | payer MEDICARE, OTHER | END 2021-08-13 09:17 | disposition home or self-care (01) | LOC: BICMAMMO 09:16 | PROVIDERS: ATTEND Family Medicine | DX: Z12.31 Encounter for screening mammogram for malignant neoplasm of breast (principal) | CPT/HCPCS: 77063; 77067 ==

== ENCOUNTER 2022-03-28 09:04 | Outpatient (CLI) | payer MEDICARE, OTHER | END 2022-03-28 09:05 | disposition home or self-care (01) | LOC: DTY/OP 09:04 | PROVIDERS: ATTEND Obstetrics & Gynecology | DX: E11.43 Type 2 diabetes mellitus with diabetic autonomic (poly)neuropathy (principal) | CPT/HCPCS: 97802 ==

== ENCOUNTER 2022-09-01 13:00 | Outpatient (CLI) | payer OTHER | END 2022-09-01 13:01 | disposition home or self-care (01) | LOC: ULT 13:00 | PROVIDERS: ATTEND Obstetrics & Gynecology | DX: N95.0 Postmenopausal bleeding (principal); N85.8 Other specified noninflammatory disorders of uterus | CPT/HCPCS: 76856 ==

== ENCOUNTER 2023-09-21 08:47 | Outpatient (CLI) | payer OTHER | END 2023-09-21 08:48 | disposition home or self-care (01) | LOC: BICRAD 08:47 | PROVIDERS: ATTEND Student in an Organized Health Care Education/Training Program | DX: M25.551 Pain in right hip (principal); M25.552 Pain in left hip ==

== ENCOUNTER 2023-10-04 13:03 | Outpatient (CLI) | payer OTHER | END 2023-10-04 13:04 | disposition home or self-care (01) | LOC: BICMAMMO 13:03 | PROVIDERS: ATTEND Student in an Organized Health Care Education/Training Program | DX: M85.88 Other specified disorders of bone density and structure, other site (principal) | CPT/HCPCS: 77080 ==

== ENCOUNTER 2024-01-18 07:22 | Outpatient (CLI) | payer OTHER ==
[2024-01-18] MEDS ORDERED: 0.9 % Sodium Chloride 20 ML, Lidocaine 1% PF 5 ML, Iopamidol 5 ML, EPINEPHrine 0.1 MG FS SCH (07:45)
[2024-01-18] MEDS ORDERED: Sodium Bicarbonate 2.5 MEQ/5 ML SDV ONE (08:19)
== END 2024-01-18 07:23 | disposition home or self-care (01) ==
LOC: RAD 07:22
PROVIDERS: ATTEND Orthopaedic Surgery
DX: M25.511 Pain in right shoulder (principal); M75.101 Unspecified rotator cuff tear or rupture of right shoulder, not specified as traumatic; E04.1 Nontoxic single thyroid nodule; Z98.890 Other specified postprocedural states
CPT/HCPCS: 23350; 73201; 77002; J0171; Q9967

== ENCOUNTER 2024-02-01 15:00 | Outpatient (CLI) | payer OTHER, MEDICAID | END 2024-02-01 15:01 | disposition home or self-care (01) | LOC: ULT 15:00 | PROVIDERS: ATTEND Family Medicine | DX: E04.1 Nontoxic single thyroid nodule (principal) | CPT/HCPCS: 76536 ==